=== PATIENT | female | born 1995 | race Caucasian/White ===

== ENCOUNTER 2020-11-03 05:22 | Emergency (ER) | payer BC ==
--- NOTE | 2020-11-03 05:44 | EDM.PDOC ---
ED HPI GENERAL MEDICAL PROBLEM - General Chief Complaint: Abdominal Pain Stated Complaint: GALL BLADDER ISSUES SURGERY COMING UP WEDNESDAY Time Seen by Provider: 11/03/20 05:38 Source of Information: Reports: Patient History Limitations: Reports: No Limitations - History of Present Illness INITIAL COMMENTS - FREE TEXT/NARRATIVE: Patient is a 25-year-old female with known history of gallbladder disease who is complaining having severe 9 out of 10 intensity pain starting at 7 PM last night. Patient states the pain was originally sharp and now is throbbing in nature and approximately 6 out of 10 in intensity. She is feeling nauseous denies any vomiting or diarrhea. She denies any fever or shaking chills. She has had similar symptoms in the past and is scheduled to have her gallbladder removed in [place] this coming up Wednesday. She has had no previous abdominal surgeries. She denies any dysuria or hematuria. She is taking what was most likely a Zofran earlier. Onset: Today Duration: Hour(s): (10) Location: Reports: Abdomen Quality: Reports: Ache, Sharp, Throbbing Severity: Severe Improves with: Reports: Rest Worsens with: Reports: Eating, Movement Associated Symptoms: Reports: No Other Symptoms Upper Abdominal Pain Score (Numeric/FACES): 10 - Related Data Allergies Allergy/AdvReac Type Severity Reaction Status Date / Time No Known Allergies Allergy Verified 11/03/20 05:36 Home Meds: Home Meds . [No Known Home Meds] 11/03/20 [History] ED ROS GENERAL - Review of Systems Review Of Systems: Comprehensive ROS is negative, except as noted in HPI. ED EXAM, GI/ABD - Physical Exam Exam: See Below Exam Limited By: No Limitations General Appearance: Moderate Distress Head: Atraumatic, Normocephalic Neck: Normal Inspection, Supple Respiratory/Chest: No Respiratory Distress, Lungs Clear, Normal Breath Sounds Cardiovascular: Regular Rate, Rhythm, No JVD GI/Abdominal Exam: Normal Bowel Sounds, No Organomegaly, Tender. No: Guarding, Rigid, Rebound Back Exam: Normal Inspection Extremities: Normal Inspection Neurological: Alert, Oriented Psychiatric: Normal Affect, Normal Mood Skin Exam: Warm, Dry, Normal Color Lymphatic: No Adenopathy Course - Vital Signs Text/Narrative:: Patient is comfortable with 1 L fluid and 1 mg Dilaudid and 4 of Zofran. Her pain levels down to 0 out of 10. All of her lab work is come back extremely abnormal with a lipase of 15,509, ALT 799, AST 720 and a T bili of 2.0. White blood cell count is also elevated at 13.4. Patient had a negative Covid test October 28 of this year. I have discussed the patient with Dr. Brower who is a GI specialist at [place] who also specializes in ERCPs. He does want the patient transferred to them and they will perform an MR soon after arrival. I then spoke to Dr. Dominguez who is the hospitalist today who is accepted her in transfer transfer and has asked that we start her on Zosyn which I have ordered. Patient is okay to go by private car. They will get surgical consult with Dr. Real upon arrival. Patient remains asymptomatic currently. Last Recorded V/S: Last Vital Signs Temp 98.0 F 11/03/20 05:33 Pulse 88 11/03/20 05:33 Resp 18 11/03/20 05:33 BP 124/79 11/03/20 05:33 Pulse Ox 99 11/03/20 05:33 - Orders/Labs/Meds Orders: Active Orders 24 hr Category Date Time Status Peripheral IV Care [RC] . DIRECTED Care 11/03/20 05:48 Active HCG QUALITATIVE,URINE [URCHEM] Stat Lab 11/03/20 05:46 Ordered UA W/O MICROSCOPIC [URIN] Stat Lab 11/03/20 05:48 Ordered Sodium Chloride 0.9% [Saline Flush] Med 11/03/20 05:47 Active 10 ml FLUSH ASDIRECTED PRN Peripheral IV Insertion Adult [OM.PC] Routine Oth 11/03/20 05:46 Ordered Medication Orders Sodium Chloride (Sodium Chloride 0.9% 10 Ml Syringe) 10 ml FLUSH ASDIRECTED PRN PRN Reason: Keep Vein Open Last Admin: 11/03/20 06:03 Dose: 10 ml Documented by: SHUKRI Labs: Laboratory Tests 11/03/20 11/03/20 Range/Units 06:00 06:00 WBC 13.47 H (3.98-10.04) K/mm3 RBC 4.71 (3.98-5.22) M/mm3 Hgb 14.1 (11.2-15.7) gm/dl Hct 42.5 (34.1-44.9) % MCV 90.2 (79.4-94.8) fl MCH 29.9 (25.6-32.2) pg MCHC 33.2 (32.2-35.5) g/dl RDW Std Deviation 42.9 (36.4-46.3) fL Plt Count 250 (182-369) K/mm3 MPV 10.1 (9.4-12.3) fl Neutrophils % (Manual) 61 H (40-60) % Band Neutrophils % 8 (0-10) % Lymphocytes % (Manual) 20 (20-40) % Atypical Lymphs % 0 % Monocytes % (Manual) 10 (2-10) % Eosinophils % (Manual) 1 (0.7-5.8) % Basophils % (Manual) 0 L (0.1-1.2) Platelet Estimate Adequate Plt Morphology Comment Normal RBC Morph Comment Normal Sodium 142 (136-145) mEq/L Potassium 4.1 (3.5-5.1) mEq/L Chloride 107 (98-107) mEq/L Carbon Dioxide 26 (21-32) mEq/L Anion Gap 13.1 (5-15) BUN 13 (7-18) mg/dL Creatinine 1.1 H (0.55-1.02) mg/dL Est Cr Clr Drug Dosing 64.11 mL/min Estimated GFR (MDRD) > 60 (>60) mL/min BUN/Creatinine Ratio 11.8 L (14-18) Glucose 151 H (70-99) mg/dL Calcium 8.8 (8.5-10.1) mg/dL Total Bilirubin 2.0 H (0.2-1.0) mg/dL AST 720 H (15-37) U/L ALT 799 H (14-59) U/L Alkaline Phosphatase 118 H (46-116) U/L Total Protein 6.7 (6.4-8.2) g/dl Albumin 3.8 (3.4-5.0) g/dl Globulin 2.9 gm/dL Albumin/Globulin Ratio 1.3 (1-2) Lipase 48602 H (73-393) U/L Meds: Medications Generic Name Dose Route Start Last Admin Trade Name Freq PRN Reason Stop Dose Admin Sodium Chloride 10 ml 11/03/20 05:47 11/03/20 06:03 Sodium Chloride 0.9% 10 Ml Syringe FLUSH 10 ml ASDIRECTED PRN Administration Keep Vein Open Discontinued Medications Generic Name Dose Route Start Last Admin Trade Name Aniceto PRN Reason Stop Dose Admin Hydromorphone HCl 1 mg 11/03/20 05:47 11/03/20 05:59 Hydromorphone 1 Mg/Ml Syringe IVPUSH 11/03/20 05:48 1 mg ONETIME ONE Administration Sodium Chloride 1,000 mls @ 1,000 mls/hr 11/03/20 05:47 11/03/20 06:00 Normal Saline IV 11/03/20 06:46 1,000 mls/hr ONETIME ONE Administration Ketorolac Tromethamine 30 mg 11/03/20 05:47 11/03/20 06:00 Ketorolac 30 Mg/Ml Sdv IVPUSH 11/03/20 05:48 30 mg ONETIME ONE Administration Ondansetron HCl 4 mg 11/03/20 05:47 11/03/20 05:59 Ondansetron 4 Mg/2 Ml Sdv IVPUSH 11/03/20 05:48 4 mg ONETIME ONE Administration Departure - Departure Time of Disposition: :21 Disposition: DC/Tfer to Acute Hospital 02 Condition: Good Clinical Impression: Common bile duct stone, Pancreatitis - Discharge Information Instructions: Acute Pancreatitis, [id number], Biliary Colic, Adult, Abdominal Pain, Adult, [id number] Referrals: Maya Groves PA-C [Primary Care Provider] - Forms: ED Department Discharge Additional Instructions: Go to [facility] for direct admission to be seen by Drs. Brower and Dr. Dominguez along with your surgeon today. They are expecting you this morning. Sepsis Event Note (ED) - Evaluation Sepsis Screening Result: No Definite Risk - Focused Exam Vital Signs: Vital Signs Temp Pulse Resp BP Pulse Ox 11/03/20 05:33 98.0 F 88 18 124/79 99 - My Orders Last 24 Hours: My Active Orders 11/03/20 05:46 HCG QUALITATIVE,URINE [URCHEM] Stat Peripheral IV Insertion Adult [OM.PC] Routine 11/03/20 05:47 Sodium Chloride 0.9% [Saline Flush] 10 ml FLUSH ASDIRECTED PRN 11/03/20 05:48 Peripheral IV Care [RC] . DIRECTED UA W/O MICROSCOPIC [URIN] Stat - Assessment/Plan Last 24 Hours: My Active Orders 11/03/20 05:46 HCG QUALITATIVE,URINE [URCHEM] Stat Peripheral IV Insertion Adult [OM.PC] Routine 11/03/20 05:47 Sodium Chloride 0.9% [Saline Flush] 10 ml FLUSH ASDIRECTED PRN 11/03/20 05:48 Peripheral IV Care [RC] . DIRECTED UA W/O MICROSCOPIC [URIN] Stat
[2020-11-03] MEDS ORDERED: Sodium Chloride 0.9% 1,000 ML IV ONE (05:47)
[2020-11-03] MEDS ORDERED: Ondansetron 4 MG/2 ML SDV IVPUSH ONE (05:47)
[2020-11-03] MEDS ORDERED: Sodium Chloride 0.9% 10 ML Syringe FLUSH PRN (05:47)
[2020-11-03] MEDS ORDERED: HYDROmorphone 1 MG/ML Syringe IVPUSH ONE (05:47)
[2020-11-03] MEDS ORDERED: Ketorolac 30 MG/ML SDV IVPUSH ONE (05:47)
[2020-11-03] MEDS ORDERED: Piperacillin/Tazobactam 4.5 GM in Sodium Chloride 0.9% 100 ML IV ONE (07:14)
[2020-11-03] MEDS ORDERED: HYDROmorphone 0.5 MG/0.5 ML Syringe IVPUSH ONE (08:01)
== END 2020-11-03 08:10 ==
LOC: JD.ED 05:22
DX: K85.90 Acute pancreatitis without necrosis or infection, unspecified (principal); K80.50 Calculus of bile duct without cholangitis or cholecystitis without obstruction
CPT/HCPCS: 36415; 80053; 81003; 81025; 83690; 85007; 85027; 96365; 96375; 96376; 99284; J1170; J1885; J2405; J2543; J7030